=== PATIENT | male | born 1990 | race Caucasian/White ===

== ENCOUNTER 2018-11-08 19:08 | Emergency (ER) | payer SELFPAY ==
[~2018-11-08] VITALS: Ht 180.3 cm; Wt 84.1 kg
[2018-11-08 19:14] VITALS: BP 139/100
--- NOTE | 2018-11-08 19:17 | NUR ---
PT TAKEN TO BED 8
--- NOTE | 2018-11-08 19:18 | NUR ---
ASSUMED CARE OF PT AT THIS TIME. C/O LEFT LOWER DENTAL PAIN X 2 DAYS. AAOX4 WITH EVEN AND STEADY GAIT; PATIENT STATES PAIN OF 8/10; VSS; PATIENT POSITIONED FOR COMFORT; HOB ELEVATED; BEDRAILS UP X2; BED DOWN. ER MD MADE AWARE OF PT STATUS. WILL CONTINUE TO MONITOR.
--- NOTE | 2018-11-08 20:19 | NUR ---
Dr. Benítez evaluating patient at bedside.
[2018-11-08] MEDS ORDERED: AMOXICILLIN 500 MG CAP PO ONE (20:30)
[2018-11-08 20:43] VITALS: BP 139/82
== END 2018-11-08 20:43 | disposition home or self-care (01) ==
LOC: MED 19:08
DX: K04.7 Periapical abscess without sinus (principal)
CPT/HCPCS: 99283

== ENCOUNTER 2020-07-25 11:45 | Emergency (ER) | payer SELFPAY ==
[~2020-07-25] VITALS: Ht 177.8 cm; Wt 73.0 kg
[2020-07-25 12:00] VITALS: BP 123/74
--- NOTE | 2020-07-25 12:05 | NUR ---
C/O PAIN/SWELLING TO L 5TH TOE X1 WEEK. PER PT - HE HIT HIS FOOT ON SOMETHING OUTSIDE AND IT HAS BECOME MORE PAINFUL. FLUID FILLED BLISTER NOTED TO LATERAL 5TH TOE. PT AMBULATORY WITH LIMP DUE TO PAIN. DATE OF LAST TDAP UNK.
[2020-07-25] MEDS ORDERED: cephALEXin 500 MG CAP PO ONE (12:25)
[2020-07-25] MEDS ORDERED: SULFAMETH/TRIMETH DS 800/160MG 1 TAB PO ONE (12:25)
--- NOTE | 2020-07-25 13:06 | NUR ---
PT DEMONSTRATED PROPER USE OF CRUTCHES WITHOUT ANY ISSUES
[2020-07-25 14:03] VITALS: BP 123/74
--- NOTE | 2020-07-25 14:03 | NUR ---
Patient discharged with v/s stable. Written and verbal after care instructions given and explained. Patient alert, oriented and verbalized understanding of instructions. Ambulatory with steady gait. All questions addressed prior to discharge. ID band removed. Patient advised to follow up with PMD. Rx of KEFLEX, BACTRIMM, NAPROSYN given. Patient educated on indication of medication including possible reaction and side effects. Opportunity to ask questions provided and answered.
== END 2020-07-25 14:03 | disposition home or self-care (01) ==
LOC: MED 11:45
DX: L03.116 Cellulitis of left lower limb (principal)
CPT/HCPCS: 73630; 90471; 90715; 99283